=== PATIENT | male | born 1995 | race Caucasian/White ===

== ENCOUNTER 2024-12-06 11:03 | Outpatient (OUT) | payer BC, SELFPAY ==
[2024-12-06 11:39] LABS: Hematocrit 44.9 % (42.0-54.0); Hemoglobin 15.5 g/dL (14.0-18.0); Immature Granulocytes Abs Auto 0.02 10^3/uL (0.00-0.03); Immature Granulocytes Pct Auto 0.3 % (0.0-0.5); Lymphocytes Absolute Auto 2.5 10^3/uL (1.2-3.8); Mean Corpuscular HGB Conc 34.5 g/dL (29.9-35.2); Mean Corpuscular Hemoglobin 28.5 pg (25.9-34.0); Mean Corpuscular Volume 82.5 fL (80.0-94.0); Platelet Count 257 10^3/uL (150-450); Red Blood Count 5.44 10^6/uL (4.70-6.10); White Blood Count 7.7 10^3/uL (4.0-11.0)
[2024-12-06 12:14] LABS: Alanine Aminotransferase 64 U/L (16-63); Albumin Globulin Ratio 1.3; Albumin Level 4.3 g/dL (3.4-5.0); Alkaline Phosphatase 85 U/L (46-116); Anion Gap 11.7; Aspartate Amino Transferase 29 U/L (15-37); Blood Urea Nitrogen 15.0 mg/dL (7.0-18.0); Calcium 9.4 mg/dL (8.5-10.1); Carbon Dioxide 30.6 mmol/L (21.0-32.0); Chloride 103 mmol/L (98-107); Cholesterol 208 mg/dL (<=200); Estimated GFR (African America >60 (>=60 mL/min/1.73m^2); Estimated GFR (Non-African Ame >60 (>=60 mL/min/1.73m^2); Free T3 2.50 pg/mL (2.18-3.98); Globulin 3.2 g/dL; Glucose 87 mg/dL (74-106); HDL Cholesterol 38 mg/dL (40-60); Potassium 4.3 mmol/L (3.5-5.1); Sodium 141 mmol/L (136-145); Thyroid Stimulating Hormone 2.600 uIU/mL (0.358-3.740); Total Protein 7.5 g/dL (6.4-8.2); Triglycerides 359 mg/dL (<=150); VLDL CHOLESTEROL 71.8 mg/dL
== END 2024-12-06 11:04 | disposition home or self-care (01) ==
PROVIDERS: PCP Family Medicine; Visit Provider Family Medicine
DX: Z00.00 Encounter for general adult medical examination without abnormal findings (principal)
CPT/HCPCS: 36415; 80053; 80061; 83036; 83525; 84436; 84443; 84481

== ENCOUNTER 2025-04-02 06:47 | Outpatient (OUT) | payer BC, SELFPAY ==
--- OUTSIDE RECORDS SUMMARY | 2025-04-02 06:52 | XMS_ITS | Clinical Summary ---
Author Organization [facility] Address [address] 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
--- OUTSIDE RECORDS SUMMARY | 2025-04-02 06:52 | XMS_ITS | Patient Health Record ---
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50-12.10 ug/dLPerforming Lab:see noteML - [facility] LBPROF 14(COMP METB) Reviewed date:12/06/2024 12:54:03 PM Interpretation: Performing Lab: Notes/Report: [facility] ,Fgnguw962046-368 mmol/LPotassium4.33.5-5.1 mmol/NNmhcrbls86472-031 mmol/LCarbon Vbwldpk79.621.0-32.0 mmol/LAnion Gap11.7Aavojbt5248-805 mg/dLBlood Urea Nitrogen 15.07.0-18.0 mg/dLCreatinine0.770.70-1.30 mg/dLEstimated GFR ( Vonda>60 >=60 mL/min/1.73m 2Estimated GFR (Non- Aggie>60>=60 mL/min/1.73m 2BUN Creatinine Ratio19.6Dspczdy3.48.5-10.1 mg/dLBilirubin Total0.60.2-1.0 mg/dL Aspartate Amino Tplwsxywtee7166-67 U/LAlanine Ayhlyeixyqfouaaz7428-90 U/L Alkaline Cguzbxgqkav5920-237 U/LTotal Protein7.56.4-8.2 g/dLAlbumin Level4.33.4- 5.0 g/dLGlobulin3.2Albumin Globulin Ratio1.3Performing Lab:see note - [facility] LBLIPID PROFILE Reviewed date:12/06/2024 12:54:03 PM Interpretation: Performing Lab: Notes/Report: [facility] ,Woxwzwvkoffph376<=150 mg/hHCndrafnrobj647<=200 mg/dLHDL Ftzsmemklga8744-68 mg/dL > or =60 mg/dl - LOW CARDIOVASCULAR RISK <40 mg/dl - HIGH CARDIOVASCULAR RISK LDL Cholesterol Odurrtpwwk11.0 <100 mg/dl OPTIMAL 100-129 mg/dl NEAR OR ABOVE OPTIMAL 130-159 mg/dl BORDERLINE HIGH 160-189 mg/dl HIGH >190 mg/dl VERY HIGH VLDL EUOXZNVOYDW45.8Chol HDL Ratio5.5 3.3 - 4.4 LOW RISK 4.4 - 7.1 AVERAGE RISK 7.1 - 11.0 MODERATE RISK >11.0 HIGH RISK Performing Lab:see note - [facility] LBFREE T3 Reviewed date:12/06/2024 12:54:03 PM Interpretation: Performing Lab: Notes/Report: [facility] ,Free T32.502.18-3.98 pg/mLPerforming Lab:see note - [facility] LB TSH Reviewed date:12/06/2024 12:54:03 PM Interpretation: Performing Lab: Notes/Report: [facility] ,Thyroid Stimulating Hormone2.6000.358-3.740 uIU/mLPerforming Lab:see note - [facility] LBINSULIN Reviewed date:12/07/2024 08:07:33 AM Interpretation: Performing Lab: Notes/Report: [facility] ,Deqsdjf86.12.6-24.9 uIU/mL Performed at: [facility] [address] [place], [place] [id number] Core Worker: Kimani Herrera PhD, Phone: [phone] Performing Lab:see noteLC - [facility] LBCBC AUTO DIFF Reviewed date:12/06/2024 12:54:03 PM Interpretation: Performing Lab: Notes/Report: [facility] ,White Blood Count7.74.0-11.0 10 3/uLRed Blood Count5.444.70-6.10 10 6/uL Ngsnvchwmx29.514.0-18.0 g/vXEivefrqfrf68.942.0-54.0 %Mean Corpuscular Yunpbp41.5 80.0-94.0 fLMean Corpuscular Ppjezrxgvs33.525.9-34.0 pgMean Corpuscular HGB Conc 34.529.9-35.2 g/dLRed Cell Distribution Width11.911.0-15.0 %Platelet Irafr565 150-450 10 3/uLMean Platelet Volume9.69.5-13.5 fLNeutrophils Percent Auto55.3 43.0-75.0 %Lymphocytes Percent Auto32.920.5-60.0 %Monocytes Percent Auto7.01.7- 12.0 %Eosinophils Percent Auto3.50.9-7.0 %Basophils Percent Auto1.00.2-2.0 % Immature Granulocytes Pct Auto0.30.0-0.5 %Neutrophils Absolute Auto4.31.4-6.5 10 3/uLLymphocytes Absolute Auto2.51.2-3.8 10 3/uLMonocytes Absolute Auto0.50.3-0.8 10 3/uLEosinophils Absolute Auto0.30.0-0.7 10 3/uLBasophils Absolute Auto0.10.0- 0.1 10 3/uLImmature Granulocytes Abs Auto0.020.00-0.03 10 3/uLPerforming Lab:see noteML - [facility] LB Reason For Referral No Information Medications Medication SIG (Take, Route, Frequency, Duration) Notes Start Date End Date Status Protonix 40 MG 1 tablet Orally Once a day; Dura tion: 90 days 5Active Social History Tobacco Use: Social History Observation Description Date Details (start date - stop date) Current Smoker NA - NA Tobacco Control (Standard) Question Answer Notes Tobacco use: Current smoker AUDIT-C (Standard) Question Answer Notes Did you have a drink containing alcohol in the p ast year? No Stxgfv7LxunaxtzlwhpnyYpoapopc Problems Problem Type SNOMED Code ICD Code Onset Dates Problem Status W/U Status Risk Notes Problem Pure hyperglyceridemia (318452367) High t riglycerides (E78.1) ActiveconfirmedProblemWell adult (560952262)Well adult (Z00.00)Activeconfirmed Vital Signs Blood pressure diastolic 82 mm Hg 12/06/2024 Sznyai3lv 3inches in12/06/2024lood pressure ciggohth676 mm Hg12/06/2024Weight 237 lbs12/06/2024BMI29.62 kg/m212/06/2024 Encounters Encounter Location Date Provider Diagnosis [facility] [address] [place] [address] 12/06/2024 Filipe Leal High triglycerides E 78.1 [facility] [address] [place] [address] 01/03/2025 Filipe Jhonnyy [facility] [place] [address] 01/03/2025[facility] [place] [address]/09/2024Doug [facility] [address] [place] [address]/Doug Hoy Well adult Z00.00 Assessments Encounter Date Diagnosis (ICD Code) Assessment Notes Treatment Notes Treatment Clinical Notes Section Notes 12/06/2024 Well adult (ICD-10 - Z00.00) 12/06/2024High triglycerides (ICD-10 - E78.1)01/03/2025Well adult (ICD-10 - Z00.00)01/14/2025Well adult (ICD-10 - Z00.00) Plan Of Treatment Pending Test Test Name Order Date HEMOGLOBIN A1C (GLYCO) 12/06/2024 INSULIN, TOTAL 12/06/2024 LIPID PANEL (CHOL/TRIG/HDL/LDL) 12/07/19 25 LIVER PROFILE 12/06/2024 THYROID PANEL (T4/TSH/FREE T3) 5 Lipid Panel 12/06/2024 CMP (COMP MET GELLER) w/eGFR CKD-EPI 2024 CBC WITH DIFF 12/06/2024 Insurance Providers Payer Name Payer Address Payer Phone Subscriber Number Group Number Insured Name Patient Relationship to Insured Coverage Start Date Coverage End Date [employer] PPO PLUS LOCAL PLAN [address] [place] [address] [id number] Carolina Kuhn - patient is the insured Medical (General) History Surgical History Surgery Date(Month/Year) [place] Teeth Extraction [id number]
[2025-04-02 11:04] LABS: Alanine Aminotransferase 59 U/L (16-63); Albumin Globulin Ratio 1.4; Albumin Level 4.3 g/dL (3.4-5.0); Alkaline Phosphatase 75 U/L (46-116); Aspartate Amino Transferase 23 U/L (15-37); Cholesterol 266 mg/dL (<=200); Globulin 3.0 g/dL; HDL Cholesterol 36 mg/dL (40-60); Total Protein 7.3 g/dL (6.4-8.2); Triglycerides 278 mg/dL (<=150); VLDL CHOLESTEROL 55.6 mg/dL
== END 2025-04-02 06:48 | disposition home or self-care (01) ==
LOC: LAB 06:50
PROVIDERS: PCP Family Medicine; Visit Provider Family Medicine
DX: E78.1 Pure hyperglyceridemia (principal)
CPT/HCPCS: 36415; 80061; 80076